=== PATIENT | female | born 1990 | race Two or more races ===

== ENCOUNTER 2023-12-08 16:41 | Emergency (ER) | payer OTHER ==
[~2023-12-08] VITALS: Ht 162.6 cm; Wt 57.2 kg
== END 2023-12-08 20:46 | disposition home or self-care (01) ==
LOC: ER 16:42
DX: N93.9 Abnormal uterine and vaginal bleeding, unspecified (principal)

== ENCOUNTER 2023-12-09 23:43 | Emergency (ER) | payer OTHER ==
[~2023-12-09] VITALS: Ht 162.6 cm; Wt 57.2 kg
[2023-12-10] MEDS ORDERED: RINGERS SOLUTION,LACTATED 1,000 ML IV STA (00:15)
[2023-12-10 00:42] LABS: HEMOGLOBIN 11.2 g/dL (12.0-15.00); MEAN CELL VOLUME 94.9 fL (80.00-100.00); MEAN CORPUSCULAR HEMOGLOBIN 32.3 pg (27.00-32.0); MEAN CORPUSCULAR HGB CONC 34.1 g/dl (32.0-36.0); PLATELET COUNT 182 K/uL (150-450); RED BLOOD COUNT 3.48 M/uL (4.00-6.00)
[2023-12-10 00:58] LABS: INR 0.94; PARTIAL THROMBOPLASTIN TIME 27.7 SECONDS (22.0-34.0); PROTHROMBIN TIME 10.3 SECONDS (9.0-11.5)
[2023-12-10 01:17] LABS: CALCIUM 8.5 mg/dL (8.5-10.1); CREATININE SERUM 0.6 mg/dL (0.55-1.02); GFR 113.76; POTASSIUM 4.13 mEq/L (3.5-5.1)
== END 2023-12-10 08:08 | disposition home or self-care (01) ==
LOC: ER 23:43
DX: O20.9 Hemorrhage in early pregnancy, unspecified (principal); O30.001 Twin pregnancy, unspecified number of placenta and unspecified number of amniotic sacs, first trimester; Z3A.09 9 weeks gestation of pregnancy

== ENCOUNTER 2023-12-12 13:36 | Outpatient (CLI) | payer OTHER | END 2023-12-12 13:40 | disposition home or self-care (01) | LOC: PRENATAL 13:36 | PROVIDERS: ATTEND Obstetrics & Gynecology Maternal & Fetal Medicine | DX: O36.80X0 Pregnancy with inconclusive fetal viability, not applicable or unspecified (principal); O30.90 Multiple gestation, unspecified, unspecified trimester; O09.529 Supervision of elderly multigravida, unspecified trimester; Z3A.09 9 weeks gestation of pregnancy ==

== ENCOUNTER 2023-12-27 18:48 | Emergency (ER) | payer OTHER ==
[~2023-12-27] VITALS: Ht 162.6 cm; Wt 57.2 kg
[2023-12-27 18:50] VITALS: BP 97/68; O2SAT 100
[2023-12-27] MEDS ORDERED: 0.9 % SODIUM CHLORIDE 1,000 ML IV STA (19:35)
[2023-12-27 20:11] LABS: URINE APPEARANCE Clear; URINE BILIRRUBIN Negative (NEGATIVE); URINE BLOOD Large; URINE COLOR Orange; URINE GLUCOSE Negative (NEGATIVE); URINE KETONE Negative (NEGATIVE); URINE LEUKOCYTE Trace; URINE NITRATE Negative; URINE PROTEIN Trace (NEGATIVE); URINE UROBILINOGEN 0.2 E.U./dl
[2023-12-27 20:12] LABS: HEMATOCRIT 37.2 % (36.0-45.00); HEMOGLOBIN 12.8 g/dL (12.0-15.00); MEAN CELL VOLUME 93.3 fL (80.00-100.00); MEAN CORPUSCULAR HEMOGLOBIN 32.2 pg (27.00-32.0); MEAN CORPUSCULAR HGB CONC 34.5 g/dl (32.0-36.0); PLATELET COUNT 223 K/uL (150-450); RED BLOOD COUNT 3.98 M/uL (4.00-6.00); RED CELL DISTRIBUTION WIDTH 12.8 % (11.5-14.5); URINE EPITHELIAL CELLS 8.3 uL (0.0-38.8); URINE RBC 3275.3 uL (0.0-20.8); URINE WBC 10.1 uL (0.0-23.2)
[2023-12-27 20:26] LABS: URINE CAST 0.76 uL (0.0-1.40)
== END 2023-12-27 21:37 | disposition home or self-care (01) ==
LOC: ER 18:49
PROVIDERS: Emergency Medicine
DX: O20.8 Other hemorrhage in early pregnancy (principal); Z3A.12 12 weeks gestation of pregnancy

== ENCOUNTER 2024-01-01 02:26 | Emergency (ER) | payer OTHER ==
[~2024-01-01] VITALS: Ht 162.6 cm; Wt 58.5 kg
[2024-01-01 03:19] LABS: HEMATOCRIT 31.1 % (36.0-45.00); HEMOGLOBIN 10.7 g/dL (12.0-15.00); MEAN CELL VOLUME 94.2 fL (80.00-100.00); MEAN CORPUSCULAR HEMOGLOBIN 32.3 pg (27.00-32.0); MEAN CORPUSCULAR HGB CONC 34.3 g/dl (32.0-36.0); PLATELET COUNT 184 K/uL (150-450); RED CELL DISTRIBUTION WIDTH 12.5 % (11.5-14.5)
== END 2024-01-01 04:25 | disposition home or self-care (01) ==
LOC: ER 02:27
PROVIDERS: General Practice
DX: O20.8 Other hemorrhage in early pregnancy (principal); Z3A.12 12 weeks gestation of pregnancy

== ENCOUNTER 2024-01-27 11:04 | Outpatient (CLI) | payer OTHER | END 2024-01-27 11:05 | disposition home or self-care (01) | LOC: PRENATAL 11:04 | PROVIDERS: ATTEND Obstetrics & Gynecology Maternal & Fetal Medicine | DX: O26.849 Uterine size-date discrepancy, unspecified trimester (principal); O28.3 Abnormal ultrasonic finding on antenatal screening of mother; O30.90 Multiple gestation, unspecified, unspecified trimester; O09.529 Supervision of elderly multigravida, unspecified trimester; Z3A.16 16 weeks gestation of pregnancy ==

== ENCOUNTER 2024-02-22 08:14 | Outpatient (CLI) | payer OTHER | END 2024-02-22 08:16 | disposition home or self-care (01) | LOC: PRENATAL 08:14 | PROVIDERS: ATTEND Obstetrics & Gynecology Maternal & Fetal Medicine | DX: O44.00 Complete placenta previa NOS or without hemorrhage, unspecified trimester (principal); O28.3 Abnormal ultrasonic finding on antenatal screening of mother; O30.90 Multiple gestation, unspecified, unspecified trimester; O09.529 Supervision of elderly multigravida, unspecified trimester; Z3A.20 20 weeks gestation of pregnancy ==

== ENCOUNTER 2024-03-16 17:13 | Inpatient (IN) | payer OTHER ==
[~2024-03-16] VITALS: Ht 162.6 cm; Wt 67.1 kg
[2024-03-16 16:25] VITALS: BP 99/66
[2024-03-16 18:15] LABS: HEMATOCRIT 33.1 % (36.0-45.00); HEMOGLOBIN 11.3 g/dL (12.0-15.00); MEAN CELL VOLUME 94.8 fL (80.00-100.00); MEAN CORPUSCULAR HEMOGLOBIN 32.3 pg (27.00-32.0); MEAN CORPUSCULAR HGB CONC 34.1 g/dl (32.0-36.0); PLATELET COUNT 159 K/uL (150-450); RED BLOOD COUNT 3.49 M/uL (4.00-6.00); RED CELL DISTRIBUTION WIDTH 13.8 % (11.5-14.5)
[2024-03-16] MEDS ORDERED: RINGERS SOLUTION,LACTATED 1,000 ML IV SCH (18:15)
[2024-03-16 18:16] LABS: URINE APPEARANCE Cloudy; URINE BILIRRUBIN Negative (NEGATIVE); URINE BLOOD Negative; URINE COLOR Yellow; URINE GLUCOSE Negative (NEGATIVE); URINE KETONE Negative (NEGATIVE); URINE LEUKOCYTE Negative; URINE NITRATE Negative; URINE PROTEIN Negative (NEGATIVE); URINE UROBILINOGEN 0.2 E.U./dl
[2024-03-16 18:17] LABS: URINE BACTERIA 132.1 uL (0.0-1933); URINE RBC 9.2 uL (0.0-20.8); URINE WBC 9.3 uL (0.0-23.2)
[2024-03-16 18:38] LABS: URINE CAST 0.14 uL (0.0-1.40)
[2024-03-16 18:40] VITALS: BP 99/66
[2024-03-16] MEDS ORDERED: BETAMETHASONE ACETATE,SOD PHOS 30 MG/5 ML ML IM ONE (19:00)
[2024-03-16] MEDS ORDERED: AZITHROMYCIN 500 MG TABLET PO ONE (19:00)
[2024-03-16] MEDS ORDERED: BETAMETHASONE ACETATE,SOD PHOS 30 MG/5 ML ML ONE (19:35)
[2024-03-16] MEDS ORDERED: AZITHROMYCIN 500 MG VIAL IV ONE ×2 (19:36→19:45)
[2024-03-16] MEDS ORDERED: AMPICILLIN SODIUM 1,000 MG VIAL IV SCH (20:00)
[2024-03-16] MEDS ORDERED: NIFEDIPINE 30 MG TAB.SA.OSM PO SCH (20:29)
[2024-03-16 23:35] VITALS: BP 98/63
[2024-03-17] MEDS ORDERED: MAGNESIUM SULFATE IN WATER 4 GM/100 ML PIGGYBACK IV ONE (00:11)
[2024-03-17] MEDS ORDERED: MAGNESIUM SULFATE IN WATER 0.04 GM/ML IV.SOLN IV ONE (00:11)
[2024-03-17] MEDS ORDERED: MAGNESIUM SULFATE IN WATER 100 ML IV SCH (00:45)
[2024-03-17] MEDS ORDERED: MAGNESIUM SULFATE IN WATER 500 ML IV SCH (00:45)
[2024-03-17] MEDS ORDERED: AMPICILLIN SODIUM 1,000 MG VIAL ONE ×2 (01:32→07:56)
[2024-03-17 03:55] VITALS: BP 100/64
[2024-03-17 07:19] VITALS: BP 100/68
[2024-03-17 11:05] VITALS: BP 104/71
[2024-03-17 15:03] VITALS: BP 97/62
[2024-03-17] MEDS ORDERED: AZITHROMYCIN 500 MG TABLET PO SCH (17:01)
[2024-03-17] MEDS ORDERED: BETAMETHASONE ACETATE,SOD PHOS 30 MG/5 ML ML IM SCH (19:00)
[2024-03-17 19:34] VITALS: BP 100/69
[2024-03-17] MEDS ORDERED: DOCUSATE SODIUM 100MG CAP PO SCH (21:00)
[2024-03-17 23:17] VITALS: BP 96/61
[2024-03-18 03:39] VITALS: BP 100/62
[2024-03-18 07:03] VITALS: BP 99/57
[2024-03-18 10:58] VITALS: BP 99/59
[2024-03-18] MEDS ORDERED: NIFEDIPINE 30 MG TAB.SA.OSM PO SCH (12:00)
[2024-03-18 15:04] VITALS: BP 101/60
[2024-03-18 20:12] VITALS: BP 90/60
[2024-03-18 23:11] VITALS: BP 97/57
[2024-03-19 03:29] VITALS: BP 94/56
[2024-03-19] MEDS ORDERED: NIFEDIPINE 20 MG CAPSULE PO ONE ×2 (04:31→04:45)
[2024-03-19 06:07] VITALS: BP 86/45; O2SAT 96
[2024-03-19] MEDS ORDERED: RINGERS SOLUTION,LACTATED 100 ML IV SCH (08:00)
[2024-03-19 12:22] VITALS: BP 100/60
[2024-03-19] MEDS ORDERED: NA PHOS,M-B/NA PHOS,DI-BA 1 BOTTLE ENEMA RECTAL NR (14:15)
[2024-03-19 15:27] VITALS: BP 96/60
[2024-03-19 18:55] VITALS: BP 91/60
[2024-03-19 23:12] VITALS: BP 90/49; O2SAT 99
[2024-03-20 04:00] VITALS: BP 100/60; O2SAT 100
[2024-03-20 06:04] VITALS: BP 100/67; O2SAT 99
[2024-03-20] MEDS ORDERED: PRENATAL TABLE1 EAC1 PO (07:12)
== END 2024-03-20 09:47 | disposition home or self-care (01) | DRG 832 ==
LOC: OBS/DEL 17:13 → LDR 18:43 → OBS/DEL 18:43 → LDR 03-20 09:47
PROVIDERS: Obstetrics & Gynecology; ADMIT Specialist; ATTEND Specialist
PROC: BY4DZZZ Ultrasonography of Second Trimester, Multiple Gestation (ICD-10-PCS; principal; 2024-03-16)
PROC: 4A1HXCZ Monitoring of Products of Conception, Cardiac Rate, External Approach (ICD-10-PCS; 2024-03-16)
PROC: BY4DZZZ Ultrasonography of Second Trimester, Multiple Gestation (ICD-10-PCS; 2024-03-19)
PROC: BU4CZZZ Ultrasonography of Uterus and Ovaries (ICD-10-PCS; 2024-03-19)
DX: O42.012 Preterm premature rupture of membranes, onset of labor within 24 hours of rupture, second trimester (principal); O23.592 Infection of other part of genital tract in pregnancy, second trimester; O26.842 Uterine size-date discrepancy, second trimester; O36.8122 Decreased fetal movements, second trimester, fetus 2; O30.042 Twin pregnancy, dichorionic/diamniotic, second trimester; Z3A.23 23 weeks gestation of pregnancy

== ENCOUNTER 2024-03-27 03:53 | Inpatient (IN) | payer OTHER ==
[~2024-03-27] VITALS: Ht 152.4 cm; Wt 71.7 kg
[2024-03-27 03:20] VITALS: BP 96/66
[~2024-03-27 03:53] MED LIST: PRENATAL TABLE1 EAC1 PO
[2024-03-27] MEDS ORDERED: RINGERS SOLUTION,LACTATED 1,000 ML IV SCH ×2 (04:15→14:00)
[2024-03-27] MEDS ORDERED: MAGNESIUM SULFATE IN WATER 25 ML IV SCH (04:15)
[2024-03-27] MEDS ORDERED: AMPICILLIN SODIUM 2,000 MG VIAL IV ONE (04:15)
[2024-03-27 04:58] LABS: PH,URINE 5.5 (5.0-8.0); URINE APPEARANCE Clear; URINE BILIRRUBIN Negative (NEGATIVE); URINE BLOOD Negative; URINE COLOR Yellow; URINE GLUCOSE Negative (NEGATIVE); URINE KETONE Negative (NEGATIVE); URINE LEUKOCYTE Negative; URINE NITRATE Negative; URINE PROTEIN Negative (NEGATIVE); URINE UROBILINOGEN 0.2 E.U./dl
[2024-03-27] MEDS ORDERED: AMPICILLIN SODIUM 1,000 MG VIAL IV SCH ×4 (05:00→17:00)
[2024-03-27 05:02] LABS: MEAN CELL VOLUME 93.3 fL (80.00-100.00); MEAN CORPUSCULAR HGB CONC 35.2 g/dl (32.0-36.0); PLATELET COUNT 158 K/uL (150-450); RED BLOOD COUNT 3.22 M/uL (4.00-6.00); RED CELL DISTRIBUTION WIDTH 13.8 % (11.5-14.5); URINE BACTERIA 41.6 uL (0.0-1933); URINE EPITHELIAL CELLS 16.2 uL (0.0-38.8); URINE RBC 2.6 uL (0.0-20.8); URINE WBC 6.3 uL (0.0-23.2)
[2024-03-27 05:05] LABS: URINE CAST 0.44 uL (0.0-1.40)
[2024-03-27 05:06] LABS: HEMOGLOBIN 10.6 g/dL (12.0-15.00); MEAN CORPUSCULAR HEMOGLOBIN 32.9 pg (27.00-32.0)
[2024-03-27 05:13] LABS: INR < 0.93; PARTIAL THROMBOPLASTIN TIME 26.7 SECONDS (22.0-34.0); PROTHROMBIN TIME 10.2 SECONDS (9.0-11.5)
[2024-03-27 05:28] LABS: ALBUMIN 2.7 gm/dL (3.4-5.0); BILIRUBIN TOTAL 0.28 mg/dL (0.3-1.2); CALCIUM 8.6 mg/dL (8.5-10.1); CREATININE SERUM 0.35 mg/dL (0.55-1.02); GFR 210.69; GLOBULINA 3.5 G/DL (2.4-3.5); POTASSIUM 4.13 mEq/L (3.5-5.1); TOTAL PROTEIN 6.2 gm/dL (6.4-8.2)
[2024-03-27 06:39] VITALS: BP 89/64; O2SAT 97
[2024-03-27] MEDS ORDERED: BETAMETHASONE ACETATE,SOD PHOS 30 MG/5 ML ML IM STA (07:21)
[2024-03-27] MEDS ORDERED: PROMETHAZINE HCL 25 MG/ML AMPUL ONE (09:55)
[2024-03-27 10:09] VITALS: BP 115/82
[2024-03-27] MEDS ORDERED: PROMETHAZINE HCL 25 MG/ML AMPUL IV STA (10:26)
[2024-03-27] MEDS ORDERED: MAGNESIUM SULFATE IN WATER 500 ML IV SCH (10:30)
[2024-03-27] MEDS ORDERED: MEPERIDINE HCL/PF 25 MG/ML VIAL IV ONE (10:30)
[2024-03-27] MEDS ORDERED: OXYTOCIN 10 UNITS/ML VIAL ONE (10:55)
[2024-03-27] MEDS ORDERED: ERYTHROMYCIN BASE OPHT 1GM EACH TUBE OP ONE (10:55)
[2024-03-27] MEDS ORDERED: MEPERIDINE HCL/PF 50 MG/ML VIAL IM PRN (14:00)
[2024-03-27] MEDS ORDERED: PROMETHAZINE HCL 50 MG/ML AMPUL IM PRN ×2 (14:00→18:30)
[2024-03-27] MEDS ORDERED: MORPHINE SULFATE 4 MG/ML VIAL IV ONE ×2 (14:20→16:00)
[2024-03-27] MEDS ORDERED: AMPICILLIN SODIUM 1,000 MG VIAL ONE (16:18)
[2024-03-27 17:06] VITALS: BP 104/69
[2024-03-27] MEDS ORDERED: OxyCODONE HCL/APAP UD (PERCOCET) PO PRN (18:30)
[2024-03-27 20:28] VITALS: BP 102/68
[2024-03-28 02:11] VITALS: BP 107/71
[2024-03-28 02:46] LABS: HEMOGLOBIN 9.2 g/dL (12.0-15.00); MEAN CELL VOLUME 94.6 fL (80.00-100.00); MEAN CORPUSCULAR HGB CONC 32.8 g/dl (32.0-36.0); PLATELET COUNT 216 K/uL (150-450); RED BLOOD COUNT 2.96 M/uL (4.00-6.00); RED CELL DISTRIBUTION WIDTH 13.8 % (11.5-14.5)
[2024-03-28] MEDS ORDERED: ACETAMINOPHEN 500 MG GEL..CAP PO PRN (08:15)
[2024-03-28 09:08] VITALS: BP 104/70
[2024-03-28 09:28] VITALS: BP 104/70
[2024-03-28] MEDS ORDERED: SIMETHICONE 125 MG CAPSULE PO SCH (18:02)
[2024-03-28 21:04] VITALS: BP 100/67
[2024-03-29] VITALS: BP 101/70
[2024-03-29] MEDS ORDERED: NA PHOS,M-B/NA PHOS,DI-BA 1 BOTTLE ENEMA RECTAL STA (07:46)
[2024-03-29 08:00] VITALS: BP 109/65
[2024-03-29] MEDS ORDERED: MAGNESIUM HYDROXIDE 30 ML BLIST.PACK PO STA (10:51)
[2024-03-29] MEDS ORDERED: MINERAL OIL 30 ML BLIST.PACK PO STA (10:51)
[2024-03-29] MEDS ORDERED: IBUprofen 800 MG TABLET PO PRN (11:00)
[2024-03-29 16:22] VITALS: BP 104/65
[2024-03-29 20:00] VITALS: BP 93/59
[2024-03-30 00:34] VITALS: BP 95/68
[2024-03-30] MEDS ORDERED: IBUPROFEN800 MG PO (06:33)
[2024-03-30 08:00] VITALS: BP 90/60
== END 2024-03-30 10:21 | disposition home or self-care (01) | DRG 786 ==
LOC: LDR 03:53 → O/R 03:53 → LDR 07:51 → O/R 12:34 → OB/GYN 16:34 → O/R 03-29 12:27 → OB/GYN 03-29 12:28
PROVIDERS: Obstetrics & Gynecology; ADMIT Specialist; ATTEND Specialist
PROC: 4A1HXCZ Monitoring of Products of Conception, Cardiac Rate, External Approach (ICD-10-PCS; 2024-03-27)
PROC: BY4DZZZ Ultrasonography of Second Trimester, Multiple Gestation (ICD-10-PCS; 2024-03-27)
PROC: BU4CZZZ Ultrasonography of Uterus and Ovaries (ICD-10-PCS; 2024-03-27)
PROC: 10D00Z1 Extraction of Products of Conception, Low, Open Approach (ICD-10-PCS; principal; 2024-03-27 13:00)
DX: O32.1XX1 Maternal care for breech presentation, fetus 1 (principal); O41.12 Chorioamnionitis; O60.12X2 Preterm labor second trimester with preterm delivery second trimester, fetus 2; O41.14 Placentitis; O41.02X1 Oligohydramnios, second trimester, fetus 1; O36.8122 Decreased fetal movements, second trimester, fetus 2; O32.2XX2 Maternal care for transverse and oblique lie, fetus 2; O42.012 Preterm premature rupture of membranes, onset of labor within 24 hours of rupture, second trimester; O31.8X22 Other complications specific to multiple gestation, second trimester, fetus 2; O30.032 Twin pregnancy, monochorionic/diamniotic, second trimester; Z37.2 Twins, both liveborn; Z3A.24 24 weeks gestation of pregnancy